=== PATIENT | female | born 1955 | race Hispanic/Latino ===

== ENCOUNTER 2024-03-22 06:34 | Observation (INO) | payer OTHER ==
[~2024-03-22 06:34] MED LIST: ACTOS15 MG PO; CRESTOR10 MG PO; GLIPIZIDE ER5 MG PO; MAGNESIUM100 MG PO; METFORMIN HCL500 MG PO; OMEGA 3 1,0001 EACH PO; TRADJENTA5 MG PO; VIT D3 PO; ZESTRIL2.5 MG PO
[2024-03-22] MEDS ORDERED: GABAPENTIN 300 MG CAP ONE ×2 (06:55→13:03)
[2024-03-22] MEDS ORDERED: DEXAMETHASONE SOD PHOS 10 MG/1 ML VIAL ONE ×2 (06:55→13:03)
[2024-03-22] MEDS ORDERED: LACTATED RINGER'S 1,000 ML ONE (06:55)
[2024-03-22] MEDS ORDERED: CELECOXIB 200 MG CAP ONE ×2 (06:55→13:03)
[2024-03-22] MEDS ORDERED: CEFAZOLIN SODIUM 2 GM ONE (06:55)
[2024-03-22] MEDS: CELECOXIB 200 MG CAP PO ONE (07:05)
[2024-03-22] MEDS ORDERED: ROPIVACAINE 246.25 MG, EPINEPHRINE HCL 1:1000 1ML 0.5 MG, CLONIDINE HCL 0.08 MG, KETORO... INJ ONE (08:00)
[2024-03-22] MEDS ORDERED: SODIUM CHLORIDE 0.9% 500ML 500 ML ONE (09:41)
[2024-03-22] MEDS ORDERED: TRANEXAMIC ACID 20 ML ONE (09:42)
[2024-03-22] MEDS ORDERED: Vancomycin IV 500 MG ONE (09:42)
[2024-03-22] MEDS: CELECOXIB 200 MG CAP PO STA (09:43)
[2024-03-22] MEDS: GABAPENTIN 300 MG CAP PO STA (09:43)
[2024-03-22] MEDS: LACTATED RINGER'S 1,000 ML INJ ONE (09:43)
[2024-03-22] MEDS: CEFAZOLIN SODIUM 2 GM in SODIUM CHLORIDE 0.9% 100 ML IV ONE (09:44)
[2024-03-22] MEDS: DEXAMETHASONE SOD PHOS 10 MG/1 ML VIAL IV ONE (09:44)
[2024-03-22] MEDS ORDERED: DEXAMETHASONE SOD PHOS INJ 4 MG/ML SDV ONE (11:10)
[2024-03-22] MEDS ORDERED: ONDANSETRON HCL INJ 2MG/ML 2ML 2 MG/ML VIAL ONE (11:10)
[2024-03-22] MEDS ORDERED: GLYCOPYRROLATE INJ 0.2 MG/ML VIAL ONE (11:10)
[2024-03-22] MEDS ORDERED: LIDOCAINE HCL 2% LOCAL INJ 5 ML SDV VIAL INJ ONE (11:10)
[2024-03-22] MEDS ORDERED: PROPOFOL IV EMULSION 10 MG/ML 20 ML VIAL ONE (11:10)
[2024-03-22] MEDS ORDERED: SEVOFLURANE INHAL SOLN 250 ML PEN BTL ONE (11:10)
[2024-03-22] MEDS ORDERED: EPINEPHRINE HCL 1:1000 1ML 1 MG/ML AMP ONE (11:29)
[2024-03-22] MEDS ORDERED: ROPIVACAINE 0.5% 5 MG/ML 30 ML SDV ONE (11:29)
[2024-03-22] MEDS ORDERED: DIPHENHYDRAMINE HCL INJ 50 MG/ML VIAL IV PRN (11:30)
[2024-03-22] MEDS ORDERED: SODIUM CHLORIDE 0.9% 1000ML 1,000 ML IV SCH (11:30)
[2024-03-22] MEDS ORDERED: DOCUSATE SODIUM 100 MG CAP PO PRN (11:30)
[2024-03-22] MEDS ORDERED: ONDANSETRON HCL INJ 2MG/ML 2ML 2 MG/ML VIAL IV PRN (11:30)
[2024-03-22] MEDS ORDERED: HYDROCODONE/APAP 5MG-325MG TAB PO PRN (11:30)
[2024-03-22 11:39] VITALS: TEMP 97.2
[2024-03-22] MEDS ORDERED: SODIUM CHLORIDE 0.9% INJ 500 ML BAG ONE (12:30)
[2024-03-22] MEDS ORDERED: Vancomycin IV 1 GM VIAL ONE (12:30)
[2024-03-22] MEDS ORDERED: [UNRECOGNIZED DRUG - OTHER] ONE (12:30)
[2024-03-22] MEDS ORDERED: TRANEXAMIC ACID 1,000 MG/10 ML ML ONE (12:30)
[2024-03-22] MEDS ORDERED: Sodium Chloride 0.9% 50ML Bag ONE (13:03)
[2024-03-22] MEDS ORDERED: LACTATED RINGER'S 1,000 ML BAG ONE (13:03)
[2024-03-22] MEDS ORDERED: CEFAZOLIN SODIUM 2 GM VIAL ONE (13:03)
[2024-03-22] MEDS ORDERED: HYDROCODONE/APAP 7.5MG-325MG 1 EA TAB ONE (13:11)
[2024-03-22] MEDS: HYDROCODONE/APAP 7.5MG-325MG 1 EA TAB PO PRN (13:30)
[2024-03-22] MEDS ORDERED: ASPIRIN81 MG PO (14:53)
[2024-03-22 16:00] VITALS: BP 105/72; PULSE 73; RESP 13; O2SAT 97
[2024-03-22] MEDS ORDERED: FENTANYL CITRATE/PF 100MCG/2 ML INJ ONE ×2 (16:15→16:20)
[2024-03-22] MEDS ORDERED: MIDAZOLAM HCL 2 MG/2 ML VIAL ONE (16:20)
[2024-03-22] MEDS ORDERED: CELECOXIB 100 MG CAP PO SCH (17:00)
[2024-03-22] MEDS ORDERED: ASPIRIN 325 MG TAB PO SCH (17:00)
[2024-03-23] MEDS ORDERED: ACETAMINOPHEN 1000 MG/100 ML IV PRN (11:30)
== END 2024-03-22 16:25 | disposition home health service (06) ==
LOC: OR 06:34 → EDSEX 10:00 → PACU V 11:24
PROVIDERS: ADMIT Specialist; ATTEND Specialist
DX: M17.12 Unilateral primary osteoarthritis, left knee (principal); I10 Essential (primary) hypertension; E78.00 Pure hypercholesterolemia, unspecified; E11.9 Type 2 diabetes mellitus without complications; Z79.84 Long term (current) use of oral hypoglycemic drugs; R00.1 Bradycardia, unspecified; Z01.812 Encounter for preprocedural laboratory examination; Z01.810 Encounter for preprocedural cardiovascular examination; Z79.899 Other long term (current) drug therapy; Z01.818 Encounter for other preprocedural examination
CPT/HCPCS: 27447; 36415; 71046; 73560; 82948; 86850; 86900; 93005; 97116 ×2; 97161; 97530; G0378; J0171; J0690; J1100 ×2; J1885; J2001; J2250; J2405; J2704; J2795; J3010; J3370; J7040; J7121